=== PATIENT | male | born 1990 | race Caucasian/White ===

== ENCOUNTER 2021-10-24 08:57 | Emergency (ER) | payer SELFPAY ==
[~2021-10-24] VITALS: Ht 177.8 cm; Wt 70.3 kg
[~2021-10-24 08:57] MED LIST: AMOX500 PO; CODACE30 PO; CRUTCH4 USE; ERYT.5TO OU; HYDACE5 PO; IBUP800 PO; NAPR500 PO; OXYACE5T PO; PENVK500 PO; PROC10 PO; RXERYTOPTH OP; TRAM50 PO; Ultram50 MG PO; Veetids 500500 MG PO
== END 2021-10-24 10:31 | disposition home or self-care (01) ==
LOC: ER 08:57
DX: M79.601 Pain in right arm (principal); R20.2 Paresthesia of skin; F17.200 Nicotine dependence, unspecified, uncomplicated
CPT/HCPCS: 73030; 73080; 73110

== ENCOUNTER 2023-01-05 11:51 | Emergency (ER) | payer OTHER ==
[~2023-01-05] VITALS: Ht 177.8 cm; Wt 65.8 kg
[2023-01-05 11:56] VITALS: BP 134/86
[2023-01-05] MEDS ORDERED: TRAM50 PO (12:12)
[2023-01-05] MEDS ORDERED: Amoxicillin500 MG PO (12:12)
[2023-01-06] MEDS ORDERED: ONDA4ODT MM (13:49)
[2023-01-06] MEDS ORDERED: IBUP800 PO (13:49)
[2023-01-06] MEDS ORDERED: AMOCLA875 PO (13:49)
== END 2023-01-05 12:28 | disposition home or self-care (01) ==
LOC: ER 11:51
DX: K02.9 Dental caries, unspecified (principal); F17.210 Nicotine dependence, cigarettes, uncomplicated
CPT/HCPCS: 99282

== ENCOUNTER 2023-01-06 11:58 | Emergency (ER) | payer OTHER ==
[~2023-01-06] VITALS: Ht 177.8 cm; Wt 65.8 kg
[~2023-01-06 11:58] MED LIST changes: +Amoxicillin500 MG PO
[2023-01-06 12:08] VITALS: BP 112/81
[2023-01-06 12:46] LABS: BASOPHILS ABSOLUTE AUTO 0.03 K/mm3 (0.00-0.23); BASOPHILS PERCENT AUTO 0 % (0-2); EOSINOPHILS PERCENT AUTO 0 % (0-6); Hematocrit 40.1 % (37.0-53.0); Hemoglobin 13.9 g/dL (13.5-17.5); IMMATURE GRAN ABSOLUTE AUTO 0.07 K/mm3 (0.00-0.10); IMMATURE GRAN PERCENT AUTO 0 % (0-1); LYMPHOCYTES ABSOLUTE AUTO 1.29 K/mm3 (0.84-5.20); LYMPHOCYTES PERCENT AUTO 8 % (21-46); MONOCYTES ABSOLUTE AUTO 1.33 K/mm3 (0.16-1.47); MONOCYTES PERCENT AUTO 8 % (4-13); Mean Corpuscular HGB 29.7 pg (26.0-34.0); Mean Corpuscular HGB Conc 34.7 g/dL (31.5-36.5); Mean Corpuscular Volume 86 fL (80-100); Mean Platelet Volume 8.9 fL (9.1-12.4); NEUTROPHILS ABSOLUTE AUTO 14.16 K/mm3 (1.96-9.15); NEUTROPHILS PERCENT AUTO 84 % (41-73); Platelet Count 290 K/mm3 (150-400); RDW Coefficient Variation 12.2 % (11.7-14.2); RDW Standard Deviation 38.2 fL (35.1-46.3); Red Blood Cell Count 4.68 M/mm3 (4.30-5.90); White Blood Cell Count 16.88 K/mm3 (4.00-11.30)
[2023-01-06 13:17] LABS: Albumin, Blood 4.3 g/dL (3.4-5.0); Albumin/Globulin Ratio 1.1 (0.8-1.8); Bun/Creatinine Ratio 22.3 (12.0-20.0); Calcium, Blood 9.4 mg/dL (8.5-10.1); Creatinine, Blood 0.72 mg/dL (0.60-1.20); Globulin, Blood 3.8 g/dL (2.2-4.0); Potassium, Blood 3.7 mmol/L (3.5-5.5); Total Protein, Blood 8.1 g/dL (6.4-8.2)
[2023-01-06] MEDS ORDERED: ONDA4ODT MM (13:49)
[2023-01-06] MEDS ORDERED: AMOCLA875 PO (13:49)
[2023-01-06] MEDS ORDERED: IBUP800 PO (13:49)
== END 2023-01-06 14:00 | disposition home or self-care (01) ==
LOC: ER 11:58
PROVIDERS: Emergency Medicine
DX: L08.9 Local infection of the skin and subcutaneous tissue, unspecified (principal); M85.60 Other cyst of bone, unspecified site; F17.210 Nicotine dependence, cigarettes, uncomplicated
CPT/HCPCS: 70487; 80053; 85025; 96374-59; 96375-59; 96376-59; 99284-25; J0295; J1885; J2405; Q9967